=== PATIENT | male | born 1995 | race Caucasian/White ===

== ENCOUNTER 2024-07-08 08:23 | Inpatient (IN) | payer SELFPAY, OTHER ==
[2024-07-08] MEDS ORDERED: CEFAZOLIN 2 GM VIAL ONE ×2 (08:28→13:56)
[2024-07-08] MEDS ORDERED: fentaNYL 50 mcg/mL 1 mL Vial ONE (08:29)
[2024-07-08] MEDS ORDERED: Boostrix 0.5 ML (Tdap) VIAL (>/=7 yrs of age) ONE (08:29)
[2024-07-08] MEDS ORDERED: Sodium Chloride 0.9% 100 ML ONE ×2 (08:29→13:56)
[2024-07-08] MEDS ORDERED: Ondansetron PF 4 MG/2 ML Vial IVP PRN (09:13)
[2024-07-08] MEDS ORDERED: Dextrose 5% in Water 1,000 ML IV PRN (09:13)
[2024-07-08] MEDS ORDERED: hydrALAZINE 20 MG/ML VIAL SLOW IVP PRN (09:13)
[2024-07-08] MEDS ORDERED: Dextrose 50% Abboject 50 ML SYRINGE SLOW IVP PRN (09:13)
[2024-07-08] MEDS ORDERED: Glucagon 1 MG/ML KIT IM PRN (09:13)
[2024-07-08] MEDS ORDERED: Ondansetron ODT 4 MG TAB PO PRN (09:13)
[2024-07-08 09:27] LABS: #Basophils Less than 0.03 10x3/uL (0.0-0.2); %Basophils 0.1 % (0.0-1.0); %Eosinophils 0.5 % (0.0-10.0); %Lymphocytes 20.6 % (21.0-51.0); %Monocytes 7.2 % (0.0-10.0); %Neutrophils 71.2 % (42.0-75.0); Hematocrit 42.6 % (42.0-52.0); Hemoglobin 14.1 g/dL (14.0-18.0); Mean Corpuscular HGB CONC 33.1 g/dL (32.0-36.0); Mean Corpuscular Hemoglobin 30.3 pg (27.0-31.0); Mean Corpuscular Volume 91.4 fL (78.0-98.0); Mean Platelet Volume 10.6 fL (7.4-10.4); Platelet Count 270 10x3/uL (130-400); RBC Distribution Width 13.4 % (11.5-14.5); Red Blood Cell (RBC) Count 4.66 mill/uL (4.70-6.10)
[2024-07-08 09:43] LABS: INR-International Normal Ratio 1.4; PTT 25.6 sec (22.9-36.1); Prothrombin Time 16.7 sec (12.0-14.7)
[2024-07-08 09:56] LABS: Alcohol Less than 10.0 mg/dL (Less than 10)
[2024-07-08 09:59] LABS: ALT (SGPT) 29 U/L (8-55); AST (SGOT) 19 U/L (5-34); Albumin 3.6 g/dL (3.5-5.0); Alkaline Phosphatase 56 U/L (40-110); Anion Gap 10 mmol/L (10-20); BUN (Urea Nitrogen) 11 mg/dL (8.9-20.6); Bilirubin, Total 0.3 mg/dL (0.2-1.2); Calc. Creatinine Clearance 0 mL/min (70-130); Calcium 8.9 mg/dL (7.8-10.44); Carbon Dioxide 23 mmol/L (22-29); Chloride 105 mmol/L (98-107); Estimated GFR 106; Globulin 2.9 g/dL (2.4-3.5); Glucose 142 mg/dL (70-105); Potassium 4.2 mmol/L (3.5-5.1); Protein, Total 6.5 g/dL (6.0-8.3); Sodium 134 mmol/L (136-145)
[2024-07-08] MEDS ORDERED: KETAMINE 100 MG/ML (5ML VIAL) ONE (10:21)
[2024-07-08] MEDS ORDERED: CEFAZOLIN 2 GM in Sodium Chloride 0.9% 100 ML IVPB SCH ×2 (11:45→18:00)
[2024-07-08] MEDS ORDERED: Iopamidol-370 76% 500 ML MDV (1 ML CHARGE) ONE (12:04)
[2024-07-08 12:50] LABS: Amphetamine Not Detected (NotDetected); Barbiturates Screen Not Detected (NotDetected); Benzodiazepine Screen Not Detected (NotDetected); Cocaine Metabolite Screen Not Detected (NotDetected); Methadone Not Detected (NotDetected); Methamphetamine Not Detected (NotDetected); Opiate Screen Not Detected (NotDetected); Oxycodone Screen Not Detected (NotDetected); Phencyclidine (PCP) Not Detected (NotDetected); THC/Cannabinoid Screen Not Detected (NotDetected); Tricyclic Screen Not Detected (NotDetected)
[2024-07-08] MEDS ORDERED: Morphine 4 MG/ML VIAL ONE (13:22)
[2024-07-08] MEDS ORDERED: fentaNYL PF 100 MCG/2 ML SYRINGE ONE ×3 (13:48→15:30)
[2024-07-08] MEDS ORDERED: PROPOFOL 20 ML ONE (13:49)
[2024-07-08] MEDS ORDERED: Lidocaine 1% PF 5 ML VIAL ONE (13:49)
[2024-07-08] MEDS ORDERED: Bupivacaine 0.25% HCL 30 ML VIAL ONE (13:50)
[2024-07-08] MEDS ORDERED: Rocuronium Bromide 10 MG/ML (10ML VIAL) ONE (14:47)
[2024-07-08] MEDS ORDERED: Dexamethasone 20 MG/5 ML VIAL ONE (15:12)
[2024-07-08] MEDS ORDERED: Ondansetron PF 4 MG/2 ML Vial ONE (15:38)
[2024-07-08] MEDS ORDERED: Ketorolac Tromethamine 30 MG (1 mL) VIAL ONE (15:38)
[2024-07-08] MEDS ORDERED: PHENYLEPHRINE-NS 100 MCG/ML 10 ML SYRINGE ONE (16:16)
[2024-07-08] MEDS ORDERED: SUGAMMADEX SODIUM 200 MG/2 ML VIAL ONE (16:29)
[2024-07-08] MEDS ORDERED: HYDROmorphone 2 MG/ML VIAL ONE (16:31)
[2024-07-08 20:07] VITALS: BMI 33.0
[2024-07-09 04:58] LABS: #Basophils Less than 0.03 10x3/uL (0.0-0.2); #Eosinphils Less than 0.03 10x3/uL (0.0-0.7); %Basophils 0.1 % (0.0-1.0); %Lymphocytes 9.4 % (21.0-51.0); %Monocytes 9.9 % (0.0-10.0); %Neutrophils 80.2 % (42.0-75.0); Mean Corpuscular HGB CONC 32.5 g/dL (32.0-36.0); Mean Corpuscular Hemoglobin 29.9 pg (27.0-31.0); Platelet Count 257 10x3/uL (130-400); RBC Distribution Width 13.8 % (11.5-14.5); Red Blood Cell (RBC) Count 4.35 mill/uL (4.70-6.10)
[2024-07-09 05:42] LABS: Anion Gap 9 mmol/L (10-20); BUN (Urea Nitrogen) 12 mg/dL (8.9-20.6); Calc. Creatinine Clearance 208 mL/min (70-130); Calcium 8.9 mg/dL (7.8-10.44); Carbon Dioxide 24 mmol/L (22-29); Chloride 108 mmol/L (98-107); Estimated GFR 119; Glucose 142 mg/dL (70-105); Potassium 3.8 mmol/L (3.5-5.1); Sodium 137 mmol/L (136-145)
[2024-07-09] MEDS: TETANUS, DIPHTHERIA TOX,ADULT (TDVAX) 0.5 ML VIAL IM ONE (07:40)
[2024-07-09] MEDS ORDERED: PROPOFOL 20 ML ONE (08:15)
[2024-07-09] MEDS ORDERED: Lidocaine 1% PF 5 ML VIAL ONE (08:15)
[2024-07-09] MEDS ORDERED: fentaNYL PF 100 MCG/2 ML SYRINGE ONE ×2 (08:15→09:28)
[2024-07-09] MEDS ORDERED: CEFAZOLIN 2 GM VIAL ONE (08:58)
[2024-07-09] MEDS ORDERED: Sodium Chloride 0.9% 100 ML ONE (08:58)
[2024-07-09] MEDS ORDERED: Dexamethasone 20 MG/5 ML VIAL ONE (09:26)
[2024-07-09] MEDS ORDERED: Ketorolac Tromethamine 30 MG (1 mL) VIAL ONE (09:26)
[2024-07-09] MEDS ORDERED: Ondansetron PF 4 MG/2 ML Vial ONE (09:27)
[2024-07-09] MEDS: CEFAZOLIN 2 GM in Sodium Chloride 0.9% 100 ML IVPB SCH (14:45)
[2024-07-09] MEDS: Acetaminophen 325 MG TAB PO PRN (22:57)
[2024-07-10] MEDS: traMADol HCl 50 MG TAB PO PRN (05:18)
[2024-07-10] MEDS: Enoxaparin 40 MG (0.4 mL) SYRINGE SC SCH (09:16)
[2024-07-10 11:32] VITALS: BP 142/83; TEMP 98.2
== END 2024-07-10 19:30 | disposition home or self-care (01) | DRG 504 ==
LOC: ERS 08:23 → ERHOLD 09:18 → OBSVTOIN 17:49 → SURG B 18:15
PROVIDERS: ADMIT Surgery; ATTEND Surgery
PROC: 0QSLXZZ Reposition Right Tarsal, External Approach (ICD-10-PCS; principal; 2024-07-08)
PROC: 0PSJ04Z Reposition Left Radius with Internal Fixation Device, Open Approach (ICD-10-PCS; 2024-07-08)
PROC: 0QSL04Z Reposition Right Tarsal with Internal Fixation Device, Open Approach (ICD-10-PCS; 2024-07-09)
DX: S92.211A Displaced fracture of cuboid bone of right foot, initial encounter for closed fracture (principal); S52.502A Unspecified fracture of the lower end of left radius, initial encounter for closed fracture; S62.102A Fracture of unspecified carpal bone, left wrist, initial encounter for closed fracture; S92.251A Displaced fracture of navicular [scaphoid] of right foot, initial encounter for closed fracture; S42.001A Fracture of unspecified part of right clavicle, initial encounter for closed fracture; S01.80XA Unspecified open wound of other part of head, initial encounter; Z90.49 Acquired absence of other specified parts of digestive tract; S01.01XA Laceration without foreign body of scalp, initial encounter; V29.99XA Rider (driver) (passenger) of other motorcycle injured in unspecified traffic accident, initial encounter
CPT/HCPCS: 36415; 70450; 71045; 71260; 72125; 74177; 80048; 80053; 80306; 80307; 85025; 85610; 85730; 86850; 86900; 86901; 90715; 93005; 93010; C1713; G0390; J0665; J1100; J1170; J1650; J1885; J2272; J2405; J2704; J3010; Q9967